=== PATIENT | female | born 1955 | race Caucasian/White ===

== ENCOUNTER → 2016-06-22 | Outpatient (CLI) | payer OTHER | LOC: ECHO 06-17 13:00 → HEART 5 06-17 14:00 → ECHO 10:41 | DX: R00.2 Palpitations (principal) | CPT/HCPCS: ECHO; 93306 ==

== ENCOUNTER → 2021-05-15 | Outpatient (CLI) | payer MEDICARE ==
[~2021-05-15] MED LIST: MEDROL DOSEPAK 24 MG PO; TESSALON PERLE100 MG PO; ZITHROMAX250 MG PO; ZOFRAN4 MG PO
== END ==
LOC: MAMO 15:15
DX: Z12.31 Encounter for screening mammogram for malignant neoplasm of breast (principal)
CPT/HCPCS: 77063; 77067